=== PATIENT | male | born 1990 | race Asian ===

== ENCOUNTER 2019-12-24 20:27 | Emergency (ER) | payer OTHER, MEDICARE, MEDICAID ==
[~2019-12-24] VITALS: Ht 170.2 cm; Wt 61.2 kg
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
--- NOTE | 2019-12-24 20:45 | NUR ---
at the bed side
[2019-12-24] MEDS ORDERED: MORPHINE SULFATE INJ 2 MG/ML DISP.SYRIN IV ONE (21:00)
[2019-12-24] MEDS ORDERED: MORPHINE SULFATE INJ 2 MG/ML DISP.SYRIN ONE (21:16)
[2019-12-24 21:21] LABS: BASOPHILS # (AUTO) 0.1 /CMM (0.0-0.2); BASOPHILS % (AUTO) 0.8 % (0.0-2.0); EOSINOPHILS % (AUTO) 0.4 % (0.0-6.0); HEMATOCRIT 44 % (39-51); HEMOGLOBIN 14.3 g/dL (13.5-17.5); LYMPHOCYTES % (AUTO) 12.1 % (20.0-44.0); MEAN CORPUSCULAR HGB CONC 33 g/dl (31.0-36.0); MEAN CORPUSCULAR VOLUME 96 fL (80-96); MONOCYTES # (AUTO) 0.6 /CMM (0.1-1.30); MONOCYTES % (AUTO) 7.7 % (2.0-12.0); NEUTROPHILS # (AUTO) 6.5 /CMM (1.8-8.9); PLATELET COUNT (AUTO) 185 /CMM (150-450); RED BLOOD CELL COUNT(AUTO) 4.53 MIL/uL (4.5-6.0); WHITE BLOOD COUNT (AUTO) 8.3 K/uL (4.3-11.0)
[2019-12-24 21:28] LABS: CALCIUM, SERUM 8.6 mg/dL (8.5-10.1); CARBON DIOXIDE 28 mmol/L (21-32); CHLORIDE 107 mmol/L (98-107); CREATININE 1.4 mg/dL (0.6-1.3); GLUCOSE 108 mg/dL (74-106); SODIUM SERUM 143 mmol/L (136-145); UREA NITROGEN, BLOOD 23 mg/dL (7-18)
[2019-12-24 21:35] LABS: ALANINE AMINOTRANSFERASE 150 U/L (12-78); ALBUMIN 3.2 g/dL (3.4-5.0); ALKALINE PHOSPHATASE 153 U/L (46-116); ASPARTATE AMINOTRANSFERASE 180 U/L (15-37); BILIRUBIN,DIRECT 0.1 mg/dL (0.0-0.2); BILIRUBIN,TOTAL 0.3 mg/dL (0.2-1.0); TOTAL PROTEIN, SERUM 6.1 g/dL (6.4-8.2)
[2019-12-24] MEDS ORDERED: IV NS 0.9% 1,000 ML IV ONE (22:00)
--- NOTE | 2019-12-24 22:03 | NUR ---
PT RETURNED FROM RADIOLOGY VIA [facility]
[2019-12-24] MEDS ORDERED: IBUPROFEN 600 MG TABLET PO ONE (23:40)
[2019-12-24] MEDS ORDERED: ACETAMINOPHEN ES 500 MG TABLET ONE (23:48)
[2019-12-25] MEDS ORDERED: IBUPROFEN 600 MG TABLET PO ONE
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
[2019-12-25 00:14] VITALS: BP 133/79
[2019-12-25] MEDS ORDERED: ACETAMINOPHEN ES 500 MG TABLET PO ONE (00:30)
== END 2019-12-25 00:14 | disposition home or self-care (01) ==
LOC: ER 20:28
DX: S20.219A Contusion of unspecified front wall of thorax, initial encounter (principal); Z88.1 Allergy status to other antibiotic agents; V49.59XA Passenger injured in collision with other motor vehicles in traffic accident, initial encounter; Y93.89 Activity, other specified; Y92.413 State road as the place of occurrence of the external cause; Y99.8 Other external cause status
CPT/HCPCS: 36415; 71045; 71260; 74177; 80048; 80076; 84484; 85025; 85730; 86850; 93005; 96374; 99284; J2270; J7030